=== PATIENT | female | born 1985 | race Caucasian/White ===

== ENCOUNTER 2021-01-06 07:24 | Emergency (ER) | payer OTHER ==
[~2021-01-06 07:24] MED LIST: LEXAPRO20 MG PO; MIRALAX17 GM PO; VICODIN 10/3251 EACH PO; XARELTO15 MG PO; XARELTO20 MG PO
[2021-01-06 09:13] LABS: BUN/CREAT RATIO (CALC) 18.2 RATIO; CREATININE 0.77 mg/dL (0.51-0.95); POTASSIUM 4.1 mmol/L (3.5-5.1)
[2021-01-06 09:30] LABS: BASOPHIL 1.6 % (0-2); EOSINOPHIL 3.6 % (0-5); HCT 38.8 % (37.0-47.0); HGB 13.1 g/dl (12.5-16.0); LYMPHOCYTE 38.4 % (15-48); MCH 29.5 pg (25.0-31.0); MCHC 33.8 g/dL (32.0-36.0); MCV 87.4 fL (78.0-100.0); MONOCYTE 6.9 % (0-12); MPV 10.6 fL (6.0-9.5); NEUTROPHIL 49.3 % (41-80); NRBC 0; PLT 269 K/uL (150-400); RBC 4.44 M/uL (4.20-5.40); RDW 13.4 % (11.5-14.0); WBC 4.5 K/uL (4.0-10.5)
[2021-01-06 09:34] LABS: INR 1.02 (0.9-1.2); PROTHROMBIN TIME 12.7 SECONDS (11.4-13.6); PTT 28.2 SECONDS (22.2-34.7)
[2021-01-06] MEDS ORDERED: NAPROXEN500 MG PO (12:16)
[2021-01-06] MEDS ORDERED: CELEBREX **OUT100 MG PO (12:22)
== END 2021-01-06 12:54 | disposition home or self-care (01) ==
LOC: FER 07:24
PROVIDERS: Emergency Medicine
DX: S46.819A Strain of other muscles, fascia and tendons at shoulder and upper arm level, unspecified arm, initial encounter (principal); Z88.5 Allergy status to narcotic agent; Z88.1 Allergy status to other antibiotic agents; X58.XXXA Exposure to other specified factors, initial encounter
CPT/HCPCS: 36415; 71275; 80048; 85025; 85379; 85610; 85730; Q9967